=== PATIENT | female | born 1980 | race Caucasian/White ===

== ENCOUNTER 2017-07-26 06:00 | Observation (INO) | payer OTHER ==
[2017-07-26] MEDS ORDERED: PHENAZOPYRIDINE HCL 100 MG TAB PO ONE (06:52)
[2017-07-26] MEDS ORDERED: ceFAZolin 2 GM/DEXTROSE 100 ML IV ONE (06:52)
[2017-07-26] MEDS ORDERED: LIDOCAINE 1% 2 ML INJ ID PRN (06:54)
[2017-07-26] MEDS ORDERED: LR 1,000 ML IV ONE (06:54)
[2017-07-26] MEDS ORDERED: PHENAZOPYRIDINE HCL 200 MG TAB PO ONE (07:00)
[2017-07-26] MEDS ORDERED: PROPOFOL/EMULSION 500 MG/50 ML BOTTLE IV ONE ×3 (07:22→09:28)
[2017-07-26] MEDS ORDERED: fentaNYL 100 MCG/2 ML INJ ONE ×4 (07:22→10:36)
[2017-07-26] MEDS ORDERED: MIDAZOLAM 2 MG/2 ML VIAL ONE (07:22)
--- NOTE | 2017-07-26 07:27 | PDGENHP ---
History and Physical History and Physical: Assessment and Plan: 1. Preoperative examination - CBC with Auto Differential; Future 2. Endometriosis determined by laparoscopy Basia has stage IV symptomatic endometriosis. We again reviewed all conservative and surgical options. Given the extensive disease, her completed childbearing, and her menorrhagia with likely adenomyosis, she has elected surgical intervention. This will be a robotic hysterectomy with bilateral salpingo-oophorectomy. She will require at least a right sided ureteral lysis to remove the right ovary. She also may require some shaving of lesions on the rectum. Because of her extensive disease and family history she prefers to remove both ovaries. The risks benefits and alternatives were presented and informed consent was obtained. 3. Menorrhagia with regular cycle 4. Dyspareunia in female Subjective: Patient ID: Basia Barrow is a 37 y.o. female who [facility] to [facility] for endometriosis. KATERIN Flor is a 37-year-old para 3 woman using vasectomy for contraception. She developed diarrhea with her menses. At times she could have up to 15 stools per day. She underwent a workup with gastroenterology which was reportedly negative. She also developed some dyschezia. A pelvic ultrasound showed 2 hemorrhagic cysts on her right ovary. She underwent a laparoscopy by Dr. Chambers on May 11 this year where she was found to have a left ovarian endometrioma and significant endometriosis throughout her posterior cul-de-sac with an obliterated cul-de-sac and her right ovary densely adherent to the ovarian fossa overlying the right ureter. Basia brings in a copy of her intraoperative photos documenting this. Additionally she suffers from heavy menses. Her cycles are regular every month. She will bleed 7 days. 4 of the days are extremely heavy when she will have to change a tampon and pad every 2 hours with occasional accidents. Her pain begins 2-3 days before her menses and continues the first 2 days of flow. She does have some midcycle bleeding as well. PastMedicalHistory Past Medical History: Diagnosis Date Allergy to pollen History of blood transfusion Pulmonary disease Thyroid disease Urinary tract infection Varicella PastSurgicalHistory Past Surgical History: Procedure Laterality Date DILATION AND CURETTAGE OF UTERUS KNEE SURGERY PELVIC LAPAROSCOPY CURRENT MEDICATIONS: Current Outpatient Prescriptions Medication Sig hydroCORTisone (CORTEF) 5 mg tablet Take 5 mg by mouth. pyrazinamide 500 mg tablet Thyroid, Pork, (NATURE-THROID) 65 mg Tab UNABLE TO FIND Med Name: Adrienne Smith albuterol HFA (PROAIR HFA) 90 mcg/actuation inhaler INHALE 2 PUFFS PO 15 MINUTES PRIOR TO EXERCISE No current facility-administered medications for this visit. ALLERGIES: Percocet [oxycodone-acetaminophen] I have reviewed, verified and agree with the past medical, surgical, , family, social and ROS history as documented by the RN today. Review of Systems Objective: Vital Signs: Visit Vitals BP 128/78 Pulse 85 Temp 36.4 C (97.6 F) (Temporal Artery) Resp 14 Ht 1.619 m (5' 3.75") Wt 85.3 kg (188 lb) SpO2 97% BMI 32.52 kg/m2 Physical Exam Gen: This is an alert, well developed woman in no distress. Neuro: She moves all extremities. Psych: She is appropriate, oriented, with normal affect. Neck: No thyroid enlargement, adenopathy, or tenderness. Lungs: Clear to ascultation, no wheezes or rales. Heart: Regular rate and rhythm without obvious murmurs. Abdomen: Soft, non-tender, without guarding, rebound, or masses. Extremities: No edema or cyanosis. Pelvic: Normal external genitalia. Non-gaping introitus, vagina without discharge, adequately estrogenized, no significant prolapse. Cervix without lesions or discharge. Uterus normal sized. Adnexa non-tender without enlargement. The uterus is mid position and tender posteriorly. The posterior cul-de-sac is tender with nodularity on the right uterosacral ligament. The uterus has minimal mobility. No obvious rectovaginal disease is palpable. She has mild prolapse. She has a cystic structure at the distal urethra. No discharge was expressed with palpation. The urethra is mobile. No obvious stress incontinence occurred while supine. DATA: I have reviewed patient's outside medical records. Summary findings include as noted above. TIME/COMMUNICATION: I personally spent a total of 60 minutes. Of that 50 minutes was counseling/ coordination of patient's care. See my note above for details. Oni Azar MD Board Certified Female Pelvic Medicine and Reconstructive Surgery Director of Minimally Invasive Gynecologic Surgery, [facility] Minimally Invasive Gynecologic Surgery Designee
[2017-07-26] MEDS ORDERED: SUGAMMADEX SODIUM 200 MG/2 ML VIAL IVP ONE (07:58)
[2017-07-26] MEDS ORDERED: LIDOCAINE 2% 5 ML SDV ONE (07:58)
[2017-07-26] MEDS ORDERED: ROCURONIUM 100 MG/10 ML VIAL ONE (07:58)
[2017-07-26] MEDS ORDERED: DEXAMETHASONE 4 MG/ML VIAL ONE (07:58)
[2017-07-26] MEDS ORDERED: KETOROLAC 30 MG/1 ML SDV ONE (07:58)
[2017-07-26] MEDS ORDERED: ONDANSETRON 4 MG/2 ML VIAL ONE ×2 (07:58→10:24)
[2017-07-26] MEDS ORDERED: METOCLOPRAMIDE 10 MG/2 ML VIAL ONE (07:58)
[2017-07-26] MEDS ORDERED: RANITIDINE 50 MG/2 ML VIAL ONE (07:58)
--- NOTE | 2017-07-26 08:26 | PDANEPAE ---
ANE Past Medical History - Cardiovascular History Hx Hypertension: No Hx Arrhythmias: No Hx Chest Pain: No Hx Coronary Artery / Peripheral Vascular Disease: No Hx CHF / Valvular Disease: No Hx Palpitations: No - Pulmonary History Hx COPD: No Hx Asthma/Reactive Airway Disease: Yes Hx Recent Upper Respiratory Infection: No Hx Oxygen in Use at Home: No Hx Sleep Apnea: No Sleep Apnea Screening Result - Last Documented: Negative Pulmonary History Comment: exercise induced-uses Albuterol PRN - Neurologic History Hx Cerebrovascular Accident: No Hx Seizures: No Hx Dementia: No Neurologic History Comment: migraines Q 6-8 weeks - Endocrine History Hx Diabetes: No Endocrine History Comment: hypothyroid - Renal History Hx Renal Disorders: No - Liver History Hx Hepatic Disorders: No - Neurological & Psychiatric Hx Hx Neurological and Psychiatric Disorders: No - Cancer History Hx Cancer: No - Congenital Disorder History Hx Congenital Disorders: No - GI History Hx Gastrointestinal Disorders: No - Other Health History Other Health History: chronic pain w/endometriosis-need for uterus and bilat ovary removal. Lyme disease dx Aug-joint pain,fatigue,migraines. - Chronic Pain History Chronic Pain: Yes (abd) - Surgical History Prior Surgeries: laparoscopy . D and C. bilat knee surgery-separately ANE Review of Systems Review of Systems: - Exercise capacity METS (RN): 4 METS ANE Patient History - Allergies Allergies/Adverse Reactions: oxycodone [From Percocet] Allergy (Verified 07/19/17 11:57) Itching - Home Medications Home Medications: Albuterol [Proventil Inhaler HFA (*)] 1 - 2 puffs IH DAILY PRN 07/18/17 [Last Taken 05/24/17] Herbals/Supplements -Info Only 1 ea PO DAILY 07/18/17 [Last Taken 07/19/17] Hydrocortisone 2.5 mg PO DAILY 07/18/17 [Last Taken 07/21/17] Ibuprofen [Motrin (*)] 200 mg PO DAILY PRN 07/18/17 [Last Taken 07/05/17] Nature Thyroid 65mg 65 mg PO DAILY 07/18/17 [Last Taken 07/26/17 05:00] Pyrazinamide [Pyrazinamide 500mg (*)] 500 mg PO TID 07/18/17 [Last Taken ] - NPO status NPO Since - Liquids (Date): 07/25/17 NPO Since - Liquids (Time): 22:00 NPO Since - Solids (Date): 07/25/17 NPO Since - Solids (Time): 22:00 - Smoking Hx Smoking Status: Never smoked ANE Labs/Vital Signs - Vital Signs Blood Pressure: 138/90 Heart Rate: 76 Respiratory Rate: 16 O2 Sat (%): 96 Height: 162.56 cm Weight: 81.647 kg ANE Physical Exam - Airway Neck exam: FROM Mallampati Score: Class 1 Mouth exam: normal dental/mouth exam - Pulmonary Pulmonary: no respiratory distress, no rales or rhonchi, clear to auscultation - Cardiovascular Cardiovascular: regular rate and rhythym, no murmur, rub, or gallop, pulses symmetric bilaterally - ASA Status ASA Status: II ANE Anesthesia Plan Anesthesia Plan: general endotracheal anesthesia Lines/Monitors: additional IV
[2017-07-26] MEDS ORDERED: ROCURONIUM 50 MG/5 ML VIAL ONE (08:51)
[2017-07-26] MEDS ORDERED: ALBUTEROL HFA ANES ONLY 200 PUFFS/8.5 GM MDI IH ONE (09:32)
[2017-07-26] MEDS: fentaNYL 100 MCG/2 ML INJ IVP PRN ×3 (10:00→10:38)
[2017-07-26] MEDS ORDERED: ALBUTEROL 60 PUFFS/8 GM MDI IH PRN (10:14)
[2017-07-26] MEDS ORDERED: DIAZEPAM 10 MG/2 ML SYR IVP PRN (10:16)
[2017-07-26] MEDS ORDERED: HYDROmorphONE/DILAUDID 1 MG/ML INJ IVP PRN (10:16)
[2017-07-26] MEDS ORDERED: ZOLPIDEM TARTRATE 5 MG TAB PO PRN (10:16)
[2017-07-26] MEDS ORDERED: PROMETHAZINE HCL 25 MG/ML INJ IVP PRN ×2 (10:16→10:17)
[2017-07-26] MEDS ORDERED: MEPERIDINE 25 MG/ML SYR IVP PRN (10:17)
[2017-07-26] MEDS ORDERED: LR 500 ML IV PRN (10:17)
[2017-07-26] MEDS ORDERED: METOCLOPRAMIDE 10 MG/2 ML VIAL IVP PRN (10:17)
[2017-07-26] MEDS ORDERED: ALBUTEROL 3 ML DEYVIAL IH PRN (10:17)
[2017-07-26] MEDS ORDERED: DEXAMETHASONE 4 MG/ML VIAL IVP PRN (10:17)
[2017-07-26] MEDS ORDERED: NALOXONE HCL 0.4 MG/ML INJ IVP PRN (10:17)
[2017-07-26] MEDS ORDERED: ONDANSETRON 4 MG/2 ML VIAL IVP PRN (10:17)
--- NOTE | 2017-07-26 10:19 | POSTANESTH ---
Post Anesthetic Evaluation Cardiovascular Status: Normal, Stable Respiratory Status: Normal, Stable Level of Consciousness/Mental Status: Mildly Sleepy, Arousable Pain Control: Adequate, Prn Tx Ordered Nausea/Vomiting Control: Adequate, Prn Tx Ordered Complications Possibly Related to Anesthesia: None Noted
[2017-07-26] MEDS ORDERED: HYDROmorphONE/DILAUDID 1 MG/ML INJ ONE (10:24)
--- NOTE | 2017-07-26 10:25 | POSTOPPROG ---
Post Op Note Date of Operation: 07/26/17 Surgeon: Oni Azar Registration Officer: Bianka Bonilla Anesthesiologist: Sade Anesthesia: GET(General Endotracheal) Pre-op Diagnosis: Endometriosis, dysmenorrhea Post-op Diagnosis: Same Procedure: Robotic hyst, BSO, endo, Bilat ureterolysis, cysto Findings: both ureters function at end of case Inf/Abcess present in the surg proc area at time of surgery?: No EBL: Minimal Complications: None
[2017-07-26] MEDS ORDERED: LR 1,000 ML IV SCH (10:30)
[2017-07-26] MEDS: HYDROmorphONE/DILAUDID 1 MG/ML INJ IVP PRN ×2 (11:01→11:24)
[2017-07-26] MEDS: HYDROCODONE/APAP 5/325 TAB PO PRN ×4 (13:16→22:23)
[2017-07-26] MEDS: SIMETHICONE 80 MG TAB CHEW PO SCH ×2 (15:37→21:24)
[2017-07-26] MEDS: KETOROLAC 30 MG/1 ML SDV IVP PRN ×2 (16:16→22:23)
[2017-07-26] MEDS: PYRAZINAMIDE 500 MG TAB PO SCH ×2 (18:45→20:49)
[2017-07-26 20:02] VITALS: RESP 18
[2017-07-26] MEDS: DOCUSATE SODIUM 100 MG CAP PO SCH (22:24)
[2017-07-27] MEDS: HYDROCODONE/APAP 5/325 TAB PO PRN ×2 (02:57→08:22)
[2017-07-27 03:30] LABS: HEMATOCRIT 40.7 % (38.0-47.0); HEMOGLOBIN 13.6 g/dL (12.6-16.3)
[2017-07-27] MEDS: KETOROLAC 30 MG/1 ML SDV IVP PRN ×2 (04:41→10:33)
--- NOTE | 2017-07-27 05:07 | GOP ---
[f rep st] OPERATIVE REPORT DATE OF OPERATION: SURGEON: Oni Azar MD RIP MACHINE OPERATOR: Bianka Bonilla CFA ANESTHESIA: General. PREOPERATIVE DIAGNOSIS: 1. Endometriosis. 2. Dysmenorrhea. 3. Dyschezia. 4. Uterine prolapse. 5. Urinary frequency and urgency. POSTOPERATIVE DIAGNOSIS: 1. Endometriosis. 2. Dysmenorrhea. 3. Dyschezia. 4. Uterine prolapse. 5. Urinary frequency and urgency. PROCEDURE PERFORMED: 1. Robotic-assisted total laparoscopic hysterectomy, bilateral salpingo- oophorectomy. 2. Excision of extensive endometriosis. 3. Bilateral ureterolysis. 4. Excision of rectal nodule. 5. A bilateral uterosacral ligament colpopexy. 6. Cystoscopy. FINDINGS: The patient had multiple areas of endometriosis throughout anterior and posterior cul-de-sac and both ovarian fossa, as well as the uterus and ovaries. The rectum was densely adherent to the lower uterine segment, cervix and upper vagina obliterating the posterior cul-de-sac. The right tube and ovary were densely adherent to the posterior uterus the adjacent bowel. SPECIMENS: Uterus, bilateral tubes, and ovaries with multiple specimens of endometriosis. ESTIMATED BLOOD LOSS: Less than 25 mL. DESCRIPTION OF PROCEDURE: The patient was taken to the operating room where she was identified. General anesthesia was administered and found to be adequate. She was placed in the lithotomy position and prepared and draped in normal sterile fashion. A VCare uterine manipulator was placed into the endometrial cavity and sutured to the cervix. A Peña catheter was then placed. A 1 cm infraumbilical incision was made with a scalpel. The Veress needle with CO2 gas advanced into peritoneal cavity. The abdomen was then insufflated with carbon dioxide gas. A 12 mm trocar followed by the laparoscope were then inserted. The upper abdomen was unremarkable. There was no evidence of any endometriosis on either diaphragm, liver or stomach. Two lateral ports were placed, 1 the right, 1 on the left under direct visualization. The patient then placed in Trendelenburg position and the da Mary robot docked on the left side. The instruments were then brought into the abdominal cavity under direct visualization. The anterior cul-de-sac peritoneum was excised to remove all endometriosis in this area. The left round ligament was divided. The anterior leaf of the broad ligament was incised toward the left common iliac vessels. The retroperitoneum was dissected to identify the course of the ureter at the pelvic brim. A bilateral ureterolysis was required given the significant scarring from endometriosis following the ureters up against the uterosacral ligaments, lateral aspects of the cervix as well as some of the adhesions of the bowel to the pelvic sidewall. The left ureter was dissected free and lateralized off the overlying peritoneum and endometriosis all the way down to the bladder. Once this was accomplished, a window was created in the medial leaf to skeletonize the infundibulopelvic vessels. They were then cauterized and transected. The left uterine artery was isolated above where it crossed over the left ureter. The area was then cauterized and transected. The remaining vasculature was gently dissected medially off the ureter and was divided. A similar procedure was performed on the patient's right side once again requiring a right ureterolysis all the way down to the bladder. The rectovaginal space was then entered distally beyond where the rectum was adherent to the cervix. This was accomplished by entering from the pararectal space. Once this was accomplished, I was able to dissect the rectum off the posterior cervix and lower uterine segment. The proximal nodules gently dissected free off the distal rectum. It extended approximately 30% to 50% through the muscularis layer. It was less adherent to the adjacent. The posterior cul-de-sac peritoneum was excised to remove all endometriosis. Both pelvic side wall, peritoneum likewise was completely excised to remove all endometriosis. The right adnexa had been off the uterus and excised to aid in visualization along the parametrium. A circumferential colpotomy incision was then made with the hot lian and all specimens were removed through the vagina. The vaginal cuff was then closed with a running suture of 0 V-Loc 180. A bilateral uterosacral ligament colpopexy was performed by attaching the lateral aspect of the vaginal cuff to the ipsilateral uterosacral ligaments near their insertion into the coccygeal-sacrospinous ligament complex. The pelvis was then copiously irrigated with sterile saline and hemostasis was present. The robot was then undocked. The fascia was closed with 0 Vicryl, skin with 4-0 Monocryl and surgical glue. Cystoscopy was then performed. Both ureters had vigorous jets of urine. No evidence of bladder or urethral injury seen. No obvious pathology was seen which would account for the patient's urinary frequency and urgency which likely was from her bladder peritoneum endometriosis. Anesthesia was then reversed. The patient was taken to the PACU awake, in stable condition. COMPLICATIONS: None. DISPOSITION: Patient stable to PACU. /[id number]/MODL [id number]
[2017-07-27 07:56] VITALS: BP 98/64; PULSE 61; TEMP 97.3; O2SAT 92
[2017-07-27] MEDS: DOCUSATE SODIUM 100 MG CAP PO SCH (08:22)
[2017-07-27] MEDS: PYRAZINAMIDE 500 MG TAB PO SCH (12:41)
[2017-07-27] MEDS: SIMETHICONE 80 MG TAB CHEW PO SCH (12:42)
--- NOTE | 2017-07-27 19:17 | GDS ---
[f rep st] DISCHARGE SUMMARY DISCHARGE DIAGNOSIS: 1. Stage IV endometriosis. 2. Pelvic pain. 3. Dysmenorrhea. PROCEDURES: 1. Robotic-assisted total laparoscopic hysterectomy, bilateral salpingo-oophorectomy. 2. Robotic excision of extensive endometriosis. 3. Bilateral ureterolysis. 4. Excision of rectal lesion. 5. Bilateral uterosacral ligament colpopexy. 6. Cystoscopy. HISTORY: The patient is a 37-year-old female with a long history of pelvic pain. She was diagnosed with endometriosis several months ago, by Dr. Chambers in [place], during a diagnostic laparoscopy. HOSPITAL COURSE: The patient was taken to the operating room on 07/26/2017, where she underwent the above-mentioned procedures without complications. Her postoperative course was uneventful. The morn ing after surgery, she was ambulating, voiding, and tolerating a general diet. She was discharged ho oh on postoperative day #1 in good condition. MEDICATIONS: Included Wagner and ibuprofen for pain. DISCHARGE INSTRUCTIONS: She was to follow up in the office 2 weeks after discharge. /[id number]/MODL
== END 2017-07-27 11:00 | disposition home or self-care (01) ==
LOC: F3N 06:00 → FOB 11:52
PROVIDERS: ADMIT Obstetrics & Gynecology; ATTEND Obstetrics & Gynecology
DX: N80.0 Endometriosis of uterus (principal); N80.1 Endometriosis of ovary; N80.3 Endometriosis of pelvic peritoneum; N94.5 Secondary dysmenorrhea; R35.0 Frequency of micturition; R15.0 Incomplete defecation; N81.2 Incomplete uterovaginal prolapse
CPT/HCPCS: 57425; 58571; 58662; S2900; G0378; J0690; J1100; J1170; J1885; J2250; J2405; J2704; J2765; J2780; J3010